=== PATIENT | male | born 1985 | race African-American/Black ===

== ENCOUNTER 2022-03-19 15:30 | Emergency (ER) | payer OTHER ==
[2022-03-19 15:56] LABS: Urine Blood Negative (Negative); Urine Glucose Negative (Negative); Urine Protein Negative (Negative); Urine Specific Gravity 1.015 (1.005-1.030)
[2022-03-19 16:02] LABS: Absolute Lymphocytes (CBC) 1.4 K/uL (0.7-4.9); Hematocrit 38.1 % (39.6-49.0); Lymphocytes % 33.2 % (15.3-44.8); MCV 90.3 fL (80-100); MPV 7.6 fL (7.6-11.3); RBC Red Blood Cell Count 4.22 M/uL (4.33-5.43)
[2022-03-19 16:17] LABS: Protime INR 0.85
[2022-03-19 16:30] LABS: Barbiturates NEGATIVE (NEGATIVE); Benzodiazepines NEGATIVE (NEGATIVE); Cocaine NEGATIVE (NEGATIVE); METHAMPHETAM NEGATIVE (NEGATIVE); Methadone NEGATIVE (NEGATIVE); Opiates NEGATIVE (NEGATIVE); Phencyclidine NEGATIVE (NEGATIVE); THC Cannibis NEGATIVE (NEGATIVE)
[2022-03-19 16:44] LABS: ALT/SGPT 34 U/L (12-78); AST/SGOT 15 U/L (15-37); Albumin 3.5 g/dL (3.4-5.0); Alkaline Phosphatase 79 U/L (45-117); BUN Blood Urea Nitrogen 15 mg/dL (7-18); Bicarbonate 25 mmol/L (21-32); Bilirubin Total 0.3 mg/dL (0.2-1.0); Glomerular Filtration Rate 87 ml/min (=/>90); Glucose Level 107 mg/dL (74-106); Potassium 4.6 mmol/L (3.5-5.1); Protein, Total 6.8 g/dL (6.4-8.2); Sodium Level 139 mmol/L (136-145)
[2022-03-19 16:47] LABS: Bilirubin Direct < 0.1 mg/dL (0-0.2)
--- NOTE | 2022-03-19 17:42 | RAD REPORT ---
EXAM DESCRIPTION: CT - Head C Spine Cap Wo Con - 03/19/2022 5:20 pm CLINICAL HISTORY: Seizure. Head and neck injury with chest and abdominal pain status post fall TECHNIQUE: Computed axial tomography of head, neck, chest, abdomen and pelvis obtained. IV and oral contrast not requested. Coronal and sagittal reconstruction performed. All CT scans are performed using dose optimization technique as appropriate and may include automated exposure control or mA/KV adjustment according to patient size. COMPARISON: None FINDINGS: An intracranial bleed is not seen. The ventricles are normal in caliber. An extra-axial fluid collection is not noted. . Fluid within the sinuses/mastoids is not seen. A cervical fracture is not seen. No dislocation is noted. The evaluation of mediastinum, juan, vessels, solid organs and bowel are limited secondary to the lac k of contrast administration. A mediastinal hematoma is not noted. A pleural effusion is not seen. A lung contusion is not present. The liver,spleen, pancreas, adrenals,kidneys and bladder do not demonstrate an acute traumatic injury IMPRESSION: No acute intracranial abnormality is seen. A cervical fracture is not visualized. If the patient continues have symptoms to suggest intracrania l/spinal cord pathology MRI be recommended No acute traumatic abnormality involving the chest/abdomen/pelvis.
--- NOTE | 2022-03-19 18:30 | ER ---
Nurse's Notes [facility] Name: Berenice Wang Age: 36 yrs Sex: Male : 1985 Arrival Date: 03/19/2022 Time: 15:31 Bed 18 Private MD: Diagnosis: Other seizures Presentation: 03/19 15:35 Chief complaint: Patient states: Found unresponsive laying on ground with another ll1 inmate nearby. Inmate stated he was seizing so he lowered him to ground. C-collar applied prior to EMS arrival. EMS states: Postictal initially, HR 50's BP 90's systolic. Coronavirus screen: Vaccine status: Patient reports being unvaccinated. Client denies travel out of the [place] in the last 14 days. At this time, the client does not indicate any symptoms associated with coronavirus-19. Ebola Screen: Patient denies travel to an Ebola-affected area in the 21 days before illness onset. Initial Sepsis Screen: Does the patient meet any 2 criteria? No. Patient's initial sepsis screen is negative. Does the patient have a suspected source of infection? No. Patient's initial sepsis screen is negative. Risk Assessment: Do you want to hurt yourself or someone else? Patient reports no desire to harm self or others. Onset of symptoms was March 19, 2022. 15:35 Method Of Arrival: EMS ll1 15:35 Acuity: AMANDA 3 ll1 Triage Assessment: 15:39 General: Appears in no apparent distress. Behavior is calm, cooperative, appropriate ll1 for age. Pain: Denies pain. Neuro: Level of Consciousness is awake, alert, obeys commands, Oriented to person, place, time, situation, Appropriate for age Packaging Operator are equal bilaterally Moves all extremities. Full function Speech is normal, Pupils are PERRLA, Seizure activity reported prior to arrival. Historical: - Allergies: 15:38 Iodine; tw2 15:38 dexadryl; tw2 15:38 Fish Containing Products; tw2 - PMHx: 15:38 Seizure; Hypertensive disorder; tw2 - PSHx: 15:38 R ankle ORIF; tw2 - Immunization history:: Client reports having NOT received the Covid vaccine. - Social history:: Smoking status: Patient reports the use of cigarette tobacco products, smokes one-half pack cigarettes per day. Screenin:33 Abuse screen: Denies threats or abuse. Nutritional screening: No deficits noted. tw2 Tuberculosis screening: No symptoms or risk factors identified. Fall Risk None identified. Assessment: 16:00 Reassessment: No changes from previously documented assessment. Patient and/or family ll1 updated on plan of care and expected duration. Pain level reassessed. Patient is alert, oriented x 3, equal unlabored respirations, skin warm/dry/pink. 17:00 Reassessment: No changes from previously documented assessment. Patient and/or family ll1 updated on plan of care and expected duration. Pain level reassessed. Patient is alert, oriented x 3, equal unlabored respirations, skin warm/dry/pink. 17:57 Reassessment: No changes from previously documented assessment. Patient and/or family ll1 updated on plan of care and expected duration. Pain level reassessed. Patient is alert, oriented x 3, equal unlabored respirations, skin warm/dry/pink. 18:40 Reassessment: No changes from previously documented assessment. Patient and/or family ll1 updated on plan of care and expected duration. Pain level reassessed. Patient is alert, oriented x 3, equal unlabored respirations, skin warm/dry/pink. Vital Signs: 15:35 BP 113 / 67; Pulse 57; Resp 17; Pulse Ox 97% ; Weight 95.25 kg; Height 6 ft. 1 in. ll1 (185.42 cm); Pain 0/10; 15:40 Temp 97.6; ll1 17:55 BP 120 / 69; Pulse 53; Resp 16; Pulse Ox 96% ; ll1 18:55 BP 121 / 61; Pulse 56; Resp 17; Pulse Ox 97% ; ll1 15:35 Body Mass Index 27.71 (95.25 kg, 185.42 cm) ll1 ED Course: 15:31 Patient arrived in ED. ll1 15:31 Andres Nance PA is PHCP. cp 15:31 Fahad Kenny MD is Attending Physician. cp 15:34 Bed in low position. Call light in reach. Side rails up X2. Security at bedside. Pulse tw2 ox on. NIBP on. Warm blanket given. Pillow given. 15:35 Ivania Isidro RN is Primary Nurse. ll1 15:37 Triage completed. ll1 15:40 Arm band placed on. ll1 15:40 Maintain EMS IV. Dressing intact. Good blood return noted. Site clean \T\ dry. Gauge \T\ ll 1 site: 20 G L FA. 15:57 Urine Drug Screen Sent. ll1 17:20 Head C Spine Cap Wo Con In Process Unspecified. EDMS 17:49 Urine Dipstick-Ancillary Sent. ll1 18:40 No provider procedures requiring assistance completed. IV discontinued, intact, ll1 bleeding controlled, No redness/swelling at site. Pressure dressing applied. Administered Medications: 15:43 Drug: NS 0.9% 1000 ml Route: IV; Rate: 1 bolus; Site: left forearm; tw2 17:49 Follow up: Response: No adverse reaction; IV Status: Completed infusion; IV Intake: ll1 1000ml Medication: 15:40 VIS not applicable for this client. ll1 Intake: 17:49 IV: 1000ml; Total: 1000ml. ll1 Outcome: 18:30 Discharge ordered by MD. cp 18:41 Patient left the ED. ll1 18:41 Discharged to home ambulatory. ll1 18:41 Condition: stable 18:41 Discharge instructions given to patient, Instructed on discharge instructions, follow up and referral plans. Demonstrated understanding of instructions, follow-up care. Signatures: Dispatcher [employer] EDCT Andres Nance PA PA cp Wise, Tara, RN RN tw2 Ivania Isidro, PARISH RN ll1
--- NOTE | 2022-03-19 18:30 | EDPHYS ---
Physician Documentation [facility] Name: Berenice Wang Age: 36 yrs Sex: Male : 1985 Arrival Date: 03/19/2022 Time: 15:31 Bed 18 Private MD: ED Physician Fahad Kenny HPI: 03/19 15:35 This 36 yrs old Black Male presents to ER via EMS with complaints of Loss of cp Consciousness. 15:35 Found on ground unconscious. cp 15:35 Onset: The symptoms/episode began/occurred today. Context: occurred detention, Just prior cp to the episode the patient experienced unknown symptoms. Associated injury: Neck: pain. Current symptoms: neck pain. Patient with reported seizure disorder and was found by another inmate unconscious on ground. Patient reports he takes Tegretol for seizures and has been taking medication. Historical: - Allergies: 15:38 Iodine; tw2 15:38 dexadryl; tw2 15:38 Fish Containing Products; tw2 - PMHx: 15:38 Seizure; Hypertensive disorder; tw2 - PSHx: 15:38 R ankle ORIF; tw2 - Immunization history:: Client reports having NOT received the Covid vaccine. - Social history:: Smoking status: Patient reports the use of cigarette tobacco products, smokes one-half pack cigarettes per day. ROS: 15:40 Constitutional: Negative for body aches, chills, fever, poor PO intake. cp 15:40 Neck: Positive for pain at rest. cp 15:40 Cardiovascular: Negative for chest pain, edema, palpitations. 15:40 Respiratory: Negative for cough, shortness of breath, wheezing. 15:40 Abdomen/GI: Negative for abdominal pain, nausea, vomiting, and diarrhea. 15:40 Neuro: Positive for altered mental status. 15:40 Eyes: Negative for injury, pain, redness, and discharge. cp 15:40 All other systems are negative. Exam: 15:45 Constitutional: The patient appears in no acute distress, alert, awake, cp non-diaphoretic, non-toxic, well developed, well nourished. 15:45 Head/Face: Normocephalic, atraumatic. cp 15:45 Eyes: Periorbital structures: appear normal, Pupils: equal, round, and reactive to light and accomodation, Extraocular movements: intact throughout, Conjunctiva: normal, no exudate, no injection, Sclera: no appreciated abnormality, Lids and lashes: appear normal, bilaterally. 15:45 ENT: External ear(s): are unremarkable, Nose: is normal, Mouth: Lips: moist, Oral mucosa: pink and intact, moist, Posterior pharynx: Airway: no evidence of obstruction, patent. 15:45 Neck: C-spine: C-collar placed JANITOR HEAD. 15:45 Chest/axilla: Inspection: normal, Palpation: is normal, no crepitus, no tenderness. 15:45 Cardiovascular: Rate: bradycardic, Rhythm: regular, Pulses: Pulses are 2+ in right radial artery and left radial artery. Edema: is not appreciated, JVD: is not appreciated. 15:45 Respiratory: the patient does not display signs of respiratory distress, Respirations: normal, no use of accessory muscles, no retractions, labored breathing, is not present, Breath sounds: are clear throughout, no decreased breath sounds, no stridor, no wheezing. 15:45 Abdomen/GI: Inspection: abdomen appears normal, Palpation: abdomen is soft and non-tender, in all quadrants. 15:45 Musculoskeletal/extremity: Exam is negative for decreased range of motion, deformity, injury. 15:45 Neuro: Orientation: to person, place \T\ time. Mentation: Cerebellar function: is grossly normal, Motor: moves all fours, strength is normal, Sensation: no obvious gross deficits. 16:16 ECG was reviewed by the Attending Physician. cp Vital Signs: 15:35 BP 113 / 67; Pulse 57; Resp 17; Pulse Ox 97% ; Weight 95.25 kg; Height 6 ft. 1 in. ll1 (185.42 cm); Pain 0/10; 15:40 Temp 97.6; ll1 17:55 BP 120 / 69; Pulse 53; Resp 16; Pulse Ox 96% ; ll1 18:55 BP 121 / 61; Pulse 56; Resp 17; Pulse Ox 97% ; ll1 15:35 Body Mass Index 27.71 (95.25 kg, 185.42 cm) ll1 MDM: 15:32 Patient medically screened. cp 16:00 Differential Diagnosis: cardiac arrhythmia, pseudo seizure, seizure, trauma. cp 18:30 Data reviewed: vital signs, nurses notes, lab test result(s), EKG, radiologic studies, cp CT scan. 18:30 Test interpretation: by ED physician or midlevel provider: ECG. Counseling: I had a cp detailed discussion with the patient and/or guardian regarding: the historical points, exam findings, and any diagnostic results supporting the discharge/admit diagnosis, lab results, radiology results, the need for outpatient follow up, a neurologist, to return to the emergency department if symptoms worsen or persist or if there are any questions or concerns that arise at home. Response to treatment: the patient's symptoms have markedly improved after treatment, VSS. No seizure activity observed while monitoring patient in ED. Will discharge to home for continued monitoring. 03/19 15:33 Order name: Acetaminophen; Complete Time: 17:44 cp 03/19 15:33 Order name: Basic Metabolic Panel; Complete Time: 17:44 cp 03/19 17:44 Interpretation: Normal except: CL 109; GLUC 107; GFR 87; CA 8.4. cp 03/19 15:33 Order name: CBC with Diff; Complete Time: 17:44 cp 03/19 17:44 Interpretation: Normal except: WBC 4.10; RBC 4.22; HGB 12.9; HCT 38.1. cp 03/19 15:33 Order name: ETOH Level; Complete Time: 17:44 cp 03/19 15:33 Order name: Hepatic Function; Complete Time: 17:44 cp 03/19 15:33 Order name: PT-INR; Complete Time: 17:44 cp 03/19 15:33 Order name: Ptt, Activated; Complete Time: 17:44 cp 03/19 15:33 Order name: Salicylate; Complete Time: 17:44 cp 03/19 15:33 Order name: Urine Drug Screen; Complete Time: 17:44 cp 03/19 15:56 Order name: Urine Dipstick-Ancillary; Complete Time: 17:44 EDMS 03/19 15:58 Order name: Urine Dipstick-Ancillary EDMS 03/19 17:20 Order name: Head C Spine Cap Wo Con; Complete Time: 17:44 EDMS 03/19 15:33 Order name: EKG; Complete Time: 15:33 cp 03/19 15:33 Order name: EKG - Nurse/Tech; Complete Time: 16:08 cp 03/19 15:33 Order name: IV Saline Lock; Complete Time: 15:43 cp 03/19 15:33 Order name: Labs collected and sent; Complete Time: 15:43 cp 03/19 15:33 Order name: Suicide Screening ([place]); Complete Time: 16:08 cp 03/19 15:33 Order name: Urine Dipstick-Ancillary (obtain specimen); Complete Time: 15:57 cp EC:16 Rate is 56 beats/min. Rhythm is regular. IN interval is normal. QRS interval is normal. cp QT interval is normal. T waves are Inverted in leads aVL, aVR. Interpreted by me. Reviewed by me. Administered Medications: 15:43 Drug: NS 0.9% 1000 ml Route: IV; Rate: 1 bolus; Site: left forearm; tw2 17:49 Follow up: Response: No adverse reaction; IV Status: Completed infusion; IV Intake: ll1 1000ml Disposition Summary: 03/19/22 18:30 Discharge Ordered Location: Home cp Problem: new cp Symptoms: have improved cp Condition: Stable cp Diagnosis - Other seizures cp Followup: cp - With: Private Physician - When: 1 - 2 days - Reason: Recheck today's complaints Discharge Instructions: - Discharge Summary Sheet cp - Seizure, Adult cp Forms: - Medication Reconciliation Form cp - Thank You Letter cp - Antibiotic Education cp - Prescription Opioid Use cp Addendum: 03/22/2022 07:03 Co-signature as Attending Physician, Fahad Kenny MD. r n Signatures: Dispatcher [employer] [facility] Fahad Kenny MD MD rn Page, Corey, PA PA cp Helena Israel RN RN tw2 Ivania Isidro RN RN ll1 Corrections: (The following items were deleted from the chart) 03/19 17:20 15:33 Head C Spine CAP W [id number].[id number] ordered. [facility] 03/20 17:18 03/19 18:38 Data reviewed: vital signs, nurses notes, lab test result(s), EKG, cp radiologic studies, CT scan, cp
--- NOTE | 2022-03-20 13:59 | EKG ---
Test Date: 2022-03-19 Test Time: 16:10:26 Batch Records Clerk: EVARISTO MEASUREMENT RESULTS: Intervals: Rate: 56 MD: 164 QRSD: 94 QT: 426 QTc: 411 [place]: P: 61 MD: 164 QRS: 65 T: 69 INTERPRETIVE STATEMENTS: Sinus bradycardia Otherwise normal ECG No previous ECG available for comparison Electronically Signed On 03-20-22 13:58:09 CDT by Nabeel Antony
== END 2022-03-19 18:41 | disposition home or self-care (01) ==
LOC: ER 15:30
DX: G40.89 Other seizures (principal); I10 Essential (primary) hypertension; F17.210 Nicotine dependence, cigarettes, uncomplicated; Z88.8 Allergy status to other drugs, medicaments and biological substances; Z91.013 Allergy to seafood; Z91.048 Other nonmedicinal substance allergy status
CPT/HCPCS: 36415; 70450; 71250; 72125; 80048; 80076; 80307; 80320; 80329; 81003; 85025; 85610; 85730; 93005; 96360; 96361; 99285